=== PATIENT | male | born 1930 | race Two or more races ===

== ENCOUNTER → 2017-05-29 | Outpatient (REF) | payer MEDICARE, OTHER ==
[2017-05-29 19:36] LABS: MEAN CORPUSCULAR HEMOGLOBIN 33.1 pg (27.0-33.0); MEAN CORPUSCULAR HGB CONC 34.1 g/dl (32.0-36.5); MEAN CORPUSCULAR VOLUME 97.1 fl (80.0-96.0); RED CELL DISTRIBUTION WIDTH 12.3 % (11.5-14.5); WHITE BLOOD COUNT 7.3 K/mm3 (4.0-10.0)
[2017-05-29 20:14] LABS: ALBUMIN 3.8 GM/DL (3.2-5.2); ALBUMIN/GLOBULIN RATIO 1.03 (1.00-1.93); BILIRUBIN,TOTAL 0.4 MG/DL (0.2-1.0); CALCIUM LEVEL 9.2 MG/DL (8.8-10.2); CREATININE FOR GFR 1.37 MG/DL (0.70-1.30); FREE T4 1.1 NG/DL (0.76-1.46); GLOMERULAR FILTRATION RATE 52.6 (>35); POTASSIUM SERUM 4.1 MEQ/L (3.5-5.1); TOTAL PROTEIN 7.5 GM/DL (6.4-8.2)
== END ==
LOC: M SFHCADAM 14:24
PROVIDERS: ATTEND Family Medicine
DX: G20 Parkinson's disease (principal); E78.5 Hyperlipidemia, unspecified
CPT/HCPCS: 80053; 80061; 84439; 84443; 85027; G0463

== ENCOUNTER → 2017-06-12 | Outpatient (REF) | payer MEDICARE, OTHER ==
[2017-06-12 11:59] LABS: FOLATE > 24.0 NG/ML (>5.4)
[2017-06-12 12:12] LABS: VITAMIN B12 LEVEL 589 PG/ML (247-911)
[2017-06-15 08:06] LABS: VITAMIN E LEVEL 15.9 mg/L (5.3-17.5)
== END ==
LOC: M LABNEURO 09:27
PROVIDERS: ATTEND Psychiatry & Neurology Neurology
DX: G62.9 Polyneuropathy, unspecified (principal); E51.9 Thiamine deficiency, unspecified; E53.8 Deficiency of other specified B group vitamins; E61.0 Copper deficiency; T56.0X4A Toxic effect of lead and its compounds, undetermined, initial encounter

== ENCOUNTER → 2017-06-19 | Outpatient (CLI) | payer MEDICARE, OTHER ==
--- NOTE | 2017-06-19 19:25 | REP ---
CT BRAIN WITHOUT CONTRAST: 06/19/2017. Clinical history: Parkinsonism. Technique: Noncontrast imaging of the brain performed. There are no prior studies. Findings: Dilated lateral ventricles in a symmetric fashion and proportionate to the moderately severe diffuse atrophy. Third and fourth ventricles also dilated in proportion. The gunderson-white junction differentiation maintained. There is a 10 mm lacunar infarct in the putamen of the right basal ganglia. This is old. Subtle hypodensity in the right thalamus anteriorly that may be subacute lacunar infarct. I do not see other lacunar infarcts in the basal ganglia. 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 Although the cortical stripe shows atrophy. There is no vascular territory infarct, intracranial hemorrhage, mass or mass effect. No extra-axial fluid collections. Brainstem grossly unremarkable. Moderately severe cerebellar atrophy bilaterally. Basal cisterns intact. Mastoids visible are visualized sinuses clear. Heavy vascular calcifications in the carotid siphons, right more than left. Impression: 1. Diffuse moderately severe atrophy with proportionate ventriculomegaly. 2. 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 3. Extensive chronic small vessel white matter changes and diffuse atrophy of the cortex but no vascular territory infarct, hemorrhage, mass or mass effect. Signed by Golden Franks MD 06/20/2017 08:48 A
== END ==
LOC: M RAD 16:58
PROVIDERS: ATTEND Psychiatry & Neurology Neurology
DX: G20 Parkinson's disease (principal); R26.81 Unsteadiness on feet
CPT/HCPCS: 70450; G0463

== ENCOUNTER → 2017-07-18 | Outpatient (REF) | payer MEDICARE, OTHER | LOC: M SMT 17:03 | PROVIDERS: ATTEND Nurse Practitioner Women's Health | DX: N40.1 Benign prostatic hyperplasia with lower urinary tract symptoms (principal) | CPT/HCPCS: 81001; 87088; 87186; G0463 ==

== ENCOUNTER → 2017-12-24 | Outpatient (REF) | payer MEDICARE, OTHER ==
[2017-12-24 20:33] LABS: ANION GAP 4 MEQ/L (8-16); BLOOD UREA NITROGEN 33 MG/DL (7-18); CARBON DIOXIDE LEVEL 29 MEQ/L (21-32); CHLORIDE LEVEL 103 MEQ/L (98-107); GLOMERULAR FILTRATION RATE 40.9 (>35); GLUCOSE, FASTING 82 MG/DL (70-100); NT-PRO BNP 259 PG/ML (<450); SODIUM LEVEL 136 MEQ/L (136-145)
[2017-12-24 20:35] LABS: POTASSIUM SERUM 5.5 MEQ/L (3.5-5.1)
== END ==
LOC: M SFHCADAM 14:51
DX: R60.0 Localized edema (principal); I11.9 Hypertensive heart disease without heart failure
CPT/HCPCS: 80048

== ENCOUNTER → 2018-03-03 | Outpatient (REF) | payer MEDICARE, OTHER | LOC: M LAB REF 11:51 | DX: C44.319 Basal cell carcinoma of skin of other parts of face (principal) | CPT/HCPCS: 88305 ==

== ENCOUNTER → 2018-03-25 | Outpatient (CLI) | payer MEDICARE, OTHER ==
[2018-03-25 13:06] LABS: ANION GAP 5 MEQ/L (8-16); BLOOD UREA NITROGEN 24 MG/DL (7-18); CALCIUM LEVEL 8.9 MG/DL (8.8-10.2); CARBON DIOXIDE LEVEL 30 MEQ/L (21-32); CHLORIDE LEVEL 104 MEQ/L (98-107); CREATININE FOR GFR 1.44 MG/DL (0.70-1.30); GLOMERULAR FILTRATION RATE 49.5 (>35); GLUCOSE, FASTING 93 MG/DL (70-100); POTASSIUM SERUM 4.8 MEQ/L (3.5-5.1); SODIUM LEVEL 139 MEQ/L (136-145)
== END ==
LOC: M LAB 11:41
DX: I10 Essential (primary) hypertension (principal)
CPT/HCPCS: 80048

== ENCOUNTER → 2018-07-10 | Outpatient (REF) | payer MEDICARE, OTHER ==
[2018-07-10 19:26] LABS: ALBUMIN/GLOBULIN RATIO 1.21 (1.00-1.93); ALKALINE PHOSPHATASE 90 U/L (45-117); ALT/SGPT 15 U/L (12-78); ANION GAP 8 MEQ/L (8-16); AST/SGOT 17 U/L (7-37); BILIRUBIN,TOTAL 0.4 MG/DL (0.2-1.0); BLOOD UREA NITROGEN 18 MG/DL (7-18); CARBON DIOXIDE LEVEL 28 MEQ/L (21-32); CHLORIDE LEVEL 104 MEQ/L (98-107); CHOLESTEROL LEVEL 173 MG/DL (<200); CHOLESTEROL RISK RATIO 3.844 (<5); CREATININE FOR GFR 1.41 MG/DL (0.70-1.30); GLOMERULAR FILTRATION RATE 50.7 (>35); GLUCOSE, FASTING 84 MG/DL (70-100); HDL CHOLESTEROL 45 MG/DL (>40); LDL CHOLESTEROL 74.2 MG/DL (<100); NON-HDL-C 128 MG/DL; POTASSIUM SERUM 4.7 MEQ/L (3.5-5.1); SODIUM LEVEL 140 MEQ/L (136-145); TOTAL PROTEIN 7.3 GM/DL (6.4-8.2); TRIGLYCERIDES LEVEL 269 MG/DL (<150)
[2018-07-10 20:20] LABS: HEMOGLOBIN 13.4 g/dl (13.5-17.5); MEAN CORPUSCULAR HEMOGLOBIN 33.2 pg (27.0-33.0); MEAN CORPUSCULAR HGB CONC 33.5 g/dl (32.0-36.5); PLATELET COUNT, AUTOMATED 224 10^3/uL (150-450); RED BLOOD COUNT 4.04 10^6/uL (4.30-6.10); WHITE BLOOD COUNT 6.4 10^3/uL (4.0-10.0)
== END ==
LOC: M SFHCADAM 14:45
DX: I13.0 Hypertensive heart and chronic kidney disease with heart failure and stage 1 through stage 4 chronic kidney disease, or unspecified chronic kidney disease (principal); N18.3 Chronic kidney disease, stage 3 (moderate); G20 Parkinson's disease
CPT/HCPCS: 84443

== ENCOUNTER → 2018-09-03 | Outpatient (REF) | payer MEDICARE, OTHER | LOC: M SFHCLERA 10:07 | DX: L57.0 Actinic keratosis (principal) | CPT/HCPCS: 88305 ==

== ENCOUNTER → 2019-01-07 | Outpatient (REF) | payer MEDICARE, OTHER ==
[2019-01-07 20:25] LABS: HEMATOCRIT 40.4 % (42.0-52.0); HEMOGLOBIN 13.4 g/dl (13.5-17.5); MEAN CORPUSCULAR HEMOGLOBIN 32.2 pg (27.0-33.0); MEAN CORPUSCULAR HGB CONC 33.2 g/dl (32.0-36.5); MEAN CORPUSCULAR VOLUME 97.1 fl (80.0-96.0); PLATELET COUNT, AUTOMATED 228 10^3/uL (150-450); RED BLOOD COUNT 4.16 10^6/uL (4.30-6.10); WHITE BLOOD COUNT 6.7 10^3/uL (4.0-10.0)
[2019-01-07 20:46] LABS: CALCIUM LEVEL 8.8 MG/DL (8.8-10.2); CREATININE FOR GFR 1.48 MG/DL (0.70-1.30); GLOMERULAR FILTRATION RATE 47.9 (>35); POTASSIUM SERUM 4.3 MEQ/L (3.5-5.1)
== END ==
LOC: M SFHCADAM 16:12
PROVIDERS: ATTEND Family Medicine
DX: I13.10 Hypertensive heart and chronic kidney disease without heart failure, with stage 1 through stage 4 chronic kidney disease, or unspecified chronic kidney disease (principal); N18.3 Chronic kidney disease, stage 3 (moderate)
CPT/HCPCS: 80048; 85027; G0463

== ENCOUNTER → 2019-07-23 | Outpatient (REF) | payer MEDICARE, OTHER ==
[2019-07-23 20:12] LABS: HEMATOCRIT 37.7 % (42.0-52.0); HEMOGLOBIN 12.4 g/dl (13.5-17.5); MEAN CORPUSCULAR HEMOGLOBIN 33.3 pg (27.0-33.0); MEAN CORPUSCULAR HGB CONC 32.9 g/dl (32.0-36.5); MEAN CORPUSCULAR VOLUME 101.3 fl (80.0-96.0); PLATELET COUNT, AUTOMATED 205 10^3/uL (150-450); RED BLOOD COUNT 3.72 10^6/uL (4.30-6.10); WHITE BLOOD COUNT 6.1 10^3/uL (4.0-10.0)
[2019-07-23 20:15] LABS: BILIRUBIN,TOTAL 0.4 MG/DL (0.2-1.0); CALCIUM LEVEL 8.6 MG/DL (8.8-10.2); CREATININE FOR GFR 1.39 MG/DL (0.70-1.30); GLOMERULAR FILTRATION RATE 51.5 (>35); POTASSIUM SERUM 4.5 MEQ/L (3.5-5.1)
[2019-07-23 20:16] LABS: ALBUMIN 3.9 GM/DL (3.2-5.2); CHOLESTEROL RISK RATIO 3.974 (<5); TOTAL PROTEIN 6.7 GM/DL (6.4-8.2)
== END ==
LOC: M SFHCADAM 15:56
PROVIDERS: ATTEND Family Medicine
DX: N18.3 Chronic kidney disease, stage 3 (moderate) (principal); I11.9 Hypertensive heart disease without heart failure; E78.5 Hyperlipidemia, unspecified
CPT/HCPCS: 80053; 80061; 85027; G0463

== ENCOUNTER → 2019-12-03 | Outpatient (REF) | payer MEDICARE, OTHER | LOC: M SFHCADAM 18:43 | PROVIDERS: ATTEND Family Medicine | DX: R19.7 Diarrhea, unspecified (principal) | CPT/HCPCS: 87507; G0463 ==

== ENCOUNTER → 2019-12-29 | Outpatient (REF) | payer MEDICARE, OTHER ==
[2019-12-29 12:53] LABS: HEMATOCRIT 41.5 % (42.0-52.0); HEMOGLOBIN 13.4 g/dl (13.5-17.5); MEAN CORPUSCULAR HEMOGLOBIN 32.1 pg (27.0-33.0); MEAN CORPUSCULAR HGB CONC 32.3 g/dl (32.0-36.5); MEAN CORPUSCULAR VOLUME 99.5 fl (80.0-96.0); PLATELET COUNT, AUTOMATED 194 10^3/uL (150-450); RED BLOOD COUNT 4.17 10^6/uL (4.30-6.10); WHITE BLOOD COUNT 5.7 10^3/uL (4.0-10.0)
[2019-12-29 13:05] LABS: CALCIUM LEVEL 9.2 MG/DL (8.8-10.2); CREATININE FOR GFR 1.37 MG/DL (0.70-1.30); GLOMERULAR FILTRATION RATE 52.2 (>35); POTASSIUM SERUM 4.2 MEQ/L (3.5-5.1)
== END ==
LOC: M SFHCADAM 09:16
PROVIDERS: ATTEND Family Medicine
DX: A04.5 Campylobacter enteritis (principal)
CPT/HCPCS: 80048; 85027; G0463

== ENCOUNTER → 2020-02-18 | Outpatient (REF) | payer MEDICARE, OTHER | LOC: M SFHCPLAZ 10:49 | PROVIDERS: ATTEND Family Medicine | DX: K52.9 Noninfective gastroenteritis and colitis, unspecified (principal) ==

== ENCOUNTER → 2020-04-05 | Outpatient (REF) | payer MEDICARE, OTHER | LOC: M LAB REF 08:47 | PROVIDERS: ATTEND Dermatology | DX: D23.5 Other benign neoplasm of skin of trunk (principal) | CPT/HCPCS: 11402; 12032; 88305; G0463 ==

== ENCOUNTER → 2020-04-26 | Outpatient (REF) | payer MEDICARE, OTHER ==
[2020-04-26 17:19] LABS: HEMATOCRIT 40.7 % (42.0-52.0); HEMOGLOBIN 13.4 g/dl (13.5-17.5); MEAN CORPUSCULAR HEMOGLOBIN 32.5 pg (27.0-33.0); MEAN CORPUSCULAR HGB CONC 32.9 g/dl (32.0-36.5); MEAN CORPUSCULAR VOLUME 98.8 fl (80.0-96.0); PLATELET COUNT, AUTOMATED 208 10^3/uL (150-450); RED BLOOD COUNT 4.12 10^6/uL (4.30-6.10); WHITE BLOOD COUNT 5.7 10^3/uL (4.0-10.0)
[2020-04-26 17:39] LABS: ALBUMIN 3.9 GM/DL (3.2-5.2); ALT/SGPT 12 U/L (12-78); BILIRUBIN,TOTAL 0.5 MG/DL (0.2-1.0); BLOOD UREA NITROGEN 26 MG/DL (7-18); CALCIUM LEVEL 9.2 MG/DL (8.8-10.2); CARBON DIOXIDE LEVEL 31 MEQ/L (21-32); CHLORIDE LEVEL 103 MEQ/L (98-107); CHOLESTEROL LEVEL 169 MG/DL (<200); CHOLESTEROL RISK RATIO 4.694 (<5); CREATININE FOR GFR 1.72 MG/DL (0.70-1.30); FREE T4 0.98 NG/DL (0.76-1.46); GLOMERULAR FILTRATION RATE 40.1 (>35); GLUCOSE, FASTING 122 MG/DL (70-100); HDL CHOLESTEROL 36 MG/DL (>40); LDL CHOLESTEROL 80 MG/DL (<100); NON-HDL-C 133 MG/DL; POTASSIUM SERUM 4.6 MEQ/L (3.5-5.1); SODIUM LEVEL 139 MEQ/L (136-145); TRIGLYCERIDES LEVEL 263 MG/DL (<150)
[2020-04-27 09:06] LABS: VITAMIN B12 LEVEL 581 PG/ML (247-911)
[2020-04-27 09:08] LABS: FOLATE > 24.0 NG/ML (>5.4)
== END ==
LOC: M SFHCADAM 15:45
PROVIDERS: ATTEND Family Medicine
DX: I11.9 Hypertensive heart disease without heart failure (principal); N18.3 Chronic kidney disease, stage 3 (moderate); R53.83 Other fatigue; I48.0 Paroxysmal atrial fibrillation; E78.5 Hyperlipidemia, unspecified

== ENCOUNTER → 2020-07-29 | Outpatient (CLI) | payer MEDICARE, OTHER | LOC: M LAB 09:55 | PROVIDERS: ATTEND Urology | DX: C61 Malignant neoplasm of prostate (principal) ==

== ENCOUNTER → 2020-08-02 | Outpatient (CLI) | payer MEDICARE, OTHER ==
--- NOTE | 2020-08-10 14:20 | REPPI ---
TRANSRECTAL PROSTATE ULTRASOUND WITH ULTRASOUND GUIDANCE FOR PROSTATE BIOPSY HISTORY: Elevated prostate-specific antigen (PSA). Transrectal prostate ultrasound is performed. Prostate measures 3.5 x 3.0 x 5.1 cm. Prostate volume is calculated to be 27.7 mL. Echotexture is heterogeneous. A few tiny cysts and calcifications are seen in the prostate. A nodule in the right apex measures 9 x 5 mm, hypoechoic. Seminal vesicles appear somewhat asymmetric in size, right somewhat larger than the left. Ultrasound guidance was provided for Dr. Moreno who performed ultrasound- guided biopsy of the prostate. [facility]
== END ==
LOC: M SMT PRO 09:55
PROVIDERS: ATTEND Urology
DX: C61 Malignant neoplasm of prostate (principal); R97.20 Elevated prostate specific antigen [PSA]; N40.2 Nodular prostate without lower urinary tract symptoms
CPT/HCPCS: 55700; 76872; 76942; G0416

== ENCOUNTER → 2020-08-09 | Outpatient (CLI) | payer MEDICARE, OTHER ==
[2020-08-09 16:23] LABS: CALCIUM LEVEL 8.7 MG/DL (8.8-10.2); CREATININE FOR GFR 1.54 MG/DL (0.70-1.30); GLOMERULAR FILTRATION RATE 45.6 (>35); POTASSIUM SERUM 4.1 MEQ/L (3.5-5.1)
== END ==
LOC: M PLALAB 14:26
PROVIDERS: ATTEND Urology
DX: C61 Malignant neoplasm of prostate (principal)
CPT/HCPCS: 36415; 80048; G0463

== ENCOUNTER → 2020-08-12 | Outpatient (CLI) | payer MEDICARE, OTHER ==
[~2020-08-12] MED LIST: ISOVUE-370 76% 100ML VIAL As Ordered ONE
--- NOTE | 2020-08-17 15:45 | REP ---
CT ABDOMEN AND PELVIS WITH INTRAVENOUS (IV) CONTRAST HISTORY: Prostate carcinoma. COMPARISON CHEST CT STUDY: None. CT CONTRAST DOSE: 100 mL of intravenous Isovue-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 Bowel gas pattern is normal. There is a levoconvex curvature in the lumbar spine mild in degree. On axial CT images, the lung bases are clear. There is no evidence of pleural effusion or upper abdominal ascites. The liver is normal in size and homogeneous in texture. The spleen is unremarkable. Normal adrenal glands are observed bilaterally. No abnormality is noted in the pancreas or in the gallbladder. The kidneys enhance symmetrically. There is no evidence of hydronephrosis or renal mass on either side. Vascular calcification is observed. There is an infrarenal abdominal aortic aneurysm small in size measuring 2.9 cm anteroposterior x 3.6 cm medial to lateral. Common iliac arteries are not aneurysmal. There is extensive diverticulosis affecting the left colon without CT evidence of diverticulitis. This is most pronounced in the sigmoid segment. Prostate is somewhat enlarged. Seminal vesicles are symmetric. Urinary bladder is unremarkable. No abdominal wall defect is appreciated. No pelvic or retroperitoneal mass or adenopathy is observed. Bone window settings show no bony destructive lesion. Delayed postcontrast images show no evidence of filling defect in the collecting system on either side. There are small parapelvic cysts. IMPRESSION: Small infrarenal abdominal aortic aneurysm, 2.9 cm anterior to posterior x 3.6 cm right to left. Extensive left colonic diverticulosis. No evidence of mass or adenopathy. MTDD
== END ==
LOC: M RAD 16:08
PROVIDERS: ATTEND Urology
DX: C61 Malignant neoplasm of prostate (principal); I71.4 Abdominal aortic aneurysm, without rupture; K57.30 Diverticulosis of large intestine without perforation or abscess without bleeding
CPT/HCPCS: 74177; 96402; J9155; Q9967

== ENCOUNTER → 2020-08-24 | Outpatient (CLI) | payer MEDICARE, OTHER ==
--- NOTE | 2020-08-25 13:12 | REP ---
INDICATION: PROSTATE CA. COMPARISON: None. TECHNIQUE/RADIOTRACER AND DOSE: Following the intravenous administration of 22.0 mCi technetium 99 M MDP, multiple images of the entire body are performed in various projections. FINDINGS: Mild focal increased uptake is seen in the anterior end of the right 4th through 7th ribs. The distribution suggests prior fractures at these locations. There is mild arthritic uptake in both shoulders, as well as in the right patellofemoral region and left hindfoot. There is no compelling scintigraphic evidence of osseous metastases. Renal and bladder activity are seen. IMPRESSION: Mildfocal increased uptake in the anterior ends of the right 4th through 7th ribs suggests prior fractures at these locations. No compelling scintigraphic evidence of osseous metastases. <Electronically signed by Jossue Hardy > 08/25/20 [id number]
== END ==
LOC: M RAD 09:51
PROVIDERS: ATTEND Urology
DX: C61 Malignant neoplasm of prostate (principal)
CPT/HCPCS: 78306; A9503

== ENCOUNTER → 2020-09-15 | Outpatient (REF) | payer MEDICARE, OTHER | LOC: M LABSMT 15:00 | PROVIDERS: ATTEND Urology | DX: C61 Malignant neoplasm of prostate (principal) | CPT/HCPCS: 84153; 96402; G0463; J9217 ==

== ENCOUNTER → 2020-10-13 | Outpatient (CLI) | payer SELFPAY | LOC: M LABSMTC 14:00 | PROVIDERS: ATTEND Pediatrics | DX: Z20.828 Contact with and (suspected) exposure to other viral communicable diseases (principal) ==

== ENCOUNTER → 2020-10-19 | Outpatient (CLI) | payer MEDICARE, OTHER ==
--- NOTE | 2020-10-19 16:40 | REP ---
INDICATION: OCCLUSION AND STENOSIS BRITTANIE CAROTID ART. COMPARISON: None. TECHNIQUE: Bilateral carotid artery duplex ultrasound. FINDINGS: Peak flow velocities right left Internal carotid artery 67.4 cm/sec 101.5 cm/sec Int. Carotid, Diastolic 16.3 cm/sec 28.2 cm/sec External carotid artery 93.6 cm/sec 75.5 cm/sec Common carotid artery 84.4 cm/sec 83.4 cm/sec There is moderate atheromatous plaque in the common carotid arteries extending into the internal carotid and external carotid arteries bilaterally. The at with atheromatous plaque is focally heavier in the proximal left internal carotid artery. There is antegrade flow in the vertebral arteries bilaterally. IMPRESSION: The peak flow velocities are normal bilaterally. There is less than 50% narrowing bilaterally. There is no significant stenosis on the right or the left. <Electronically signed by Jossue Fernandez > 10/19/20 [id number]
--- NOTE | 2020-10-19 16:52 | REP ---
INDICATION: AAA WITHOUT RUPTURE. Rule out thoracic aortic aneurysm. COMPARISON: None. TECHNIQUE: Helical scanning is acquired. 3 mm axial images are generated. Coronal and sagittal MPR and coronal MIP images are generated. FINDINGS: Preliminary digital pipe covering molder radiograph demonstrates bipolar pacemaker. The thoracic aorta is tortuous. 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 The innominate artery is tortuous. Vascular calcification is noted. There is an eccentric bulge of the left lateral contour of the thoracic aorta at mid arch level. This appears to be a small focal aneurysmal bulge of the left lateral wall. The transverse dimension of the arch at this level is 3.5 cm. The ascending aorta measures 4.0 cm in anteroposterior dimension at the level of the right main pulmonary artery. The aortic root measures 3.9 cm in greatest diameter. The descending aorta measures 3.0 cm. The thoracic aorta is somewhat tortuous. No other aneurysm is seen. Lung window settings show no evidence of infiltrate, mass, or significant nodule. No pleural or pericardial effusion is seen. No bony destructive lesion is appreciated. IMPRESSION: There is a small focal bulge in the left lateral wall of the mid aortic arch consistent with a small focal aneurysm. Aorta measures 3.5 cm in right to left dimension at this level. The ascending aorta measures 4.0 cm. Atherosclerotic plaquing. Pacemaker. <Electronically signed by Osmar Guevara > 10/19/20 [id number]
== END ==
LOC: M RAD 15:27
PROVIDERS: ATTEND Physician Assistant
DX: I71.4 Abdominal aortic aneurysm, without rupture (principal); R09.89 Other specified symptoms and signs involving the circulatory and respiratory systems; Z95.0 Presence of cardiac pacemaker

== ENCOUNTER → 2021-03-20 | Outpatient (REF) | payer MEDICARE, OTHER | LOC: M PLALAB 16:48 | PROVIDERS: ATTEND Urology | DX: C61 Malignant neoplasm of prostate (principal) ==

== ENCOUNTER → 2021-04-13 | Outpatient (REF) | payer MEDICARE, OTHER ==
[2021-04-13 18:37] LABS: HEMATOCRIT 37.5 % (42.0-52.0); HEMOGLOBIN 12.2 g/dl (13.5-17.5); MEAN CORPUSCULAR HEMOGLOBIN 32.8 pg (27.0-33.0); MEAN CORPUSCULAR HGB CONC 32.5 g/dl (32.0-36.5); MEAN CORPUSCULAR VOLUME 100.8 fl (80.0-96.0); PLATELET COUNT, AUTOMATED 212 10^3/uL (150-450); RED BLOOD COUNT 3.72 10^6/uL (4.30-6.10); WHITE BLOOD COUNT 6.1 10^3/uL (4.0-10.0)
[2021-04-13 18:41] LABS: BILIRUBIN,TOTAL 0.4 MG/DL (0.2-1.0); CALCIUM LEVEL 9.1 MG/DL (8.8-10.2); CHOLESTEROL RISK RATIO 3.608 (<5); CREATININE FOR GFR 1.46 MG/DL (0.70-1.30); GLOMERULAR FILTRATION RATE 48.4 (>35); POTASSIUM SERUM 4.8 MEQ/L (3.5-5.1); TOTAL PROTEIN 7.2 GM/DL (6.4-8.2)
== END ==
LOC: M SFHCADAM 14:55
PROVIDERS: ATTEND Family Medicine
DX: N18.30 Chronic kidney disease, stage 3 unspecified (principal); E78.5 Hyperlipidemia, unspecified
CPT/HCPCS: 80053; 80061; 85027; G0463

== ENCOUNTER → 2021-06-20 | Outpatient (CLI) | payer MEDICARE, OTHER | LOC: M LAB 15:16 | PROVIDERS: ATTEND Urology | DX: C61 Malignant neoplasm of prostate (principal) ==

== ENCOUNTER 2021-07-27 12:16 | Emergency (ER) | payer MEDICARE, OTHER ==
[~2021-07-27] VITALS: Ht 172.7 cm; Wt 77.3 kg
[2021-07-27] MEDS ORDERED: CLOP75TA2 (12:41)
[2021-07-27] MEDS ORDERED: ELIQ2.5T (12:41)
--- NOTE | 2021-07-27 13:03 | REP ---
INDICATION: ecchymotic, swollen. COMPARISON: None. TECHNIQUE: Four views of the right elbow are provided. FINDINGS: Four views of the right elbow demonstrate soft tissue swelling over the dorsal aspect of the proximal ulna and adjacent to the olecranon. No fracture or subluxation is seen. No evidence of joint effusion. IMPRESSION: Soft tissue swelling adjacent to the proximal ulna. No fracture or subluxation seen. <Electronically signed by Osmar Guevara > 07/27/21 [id number]
[2021-07-27] MEDS ORDERED: METO1TAB32 PO (14:40)
[2021-07-27] MEDS ORDERED: OXYB10TA23 PO (14:40)
[2021-07-27] MEDS ORDERED: LISI10TA22 PO (14:40)
[2021-07-27] MEDS ORDERED: OMEP-218 PO (14:40)
[2021-07-27] MEDS ORDERED: TAMS1CAP17 PO (14:40)
[2021-07-27] MEDS ORDERED: FURO20TA2 PO (14:40)
[2021-07-27] MEDS ORDERED: CARB25TA9 PO (14:40)
[2021-07-27] MEDS ORDERED: FLUTISP INSTILL (14:40)
[2021-07-27] MEDS ORDERED: SIMV20TA22 PO (14:40)
[2021-07-27] MEDS ORDERED: FINA5TAB2 PO (14:40)
[2021-07-27] MEDS ORDERED: SERT50TA29 PO (14:40)
[2021-07-27] MEDS ORDERED: GABA-1171 PO (14:40)
--- NOTE | 2021-07-27 17:58 | REPVR ---
PROCEDURE INFORMATION: Exam: CT Head Without Contrast Exam date and time: 07/27/2021 5:34 PM Age: 89 years old Clinical indication: Injury or trauma; Fall; Blunt trauma (contusions or hematomas); Additional info: Fall, hit head, on blood thinners TECHNIQUE: Imaging protocol: Computed tomography of the head without contrast. Radiation optimization: All CT scans at this facility use at least one of these dose optimization techniques: automated exposure control; mA and/or kV adjustment per patient size (includes targeted exams where dose is matched to clinical indication); or iterative reconstruction. COMPARISON: CT Head without contrast 06/19/2017 5:12 PM FINDINGS: Brain: There is age-related volume loss. There is white matter lucency consistent with chronic microvascular disease. There are bilateral old cerebellar infarcts. There is an old right basal ganglia infarct. There is no evidence of acute infarct. Cerebral ventricles: There is no hydrocephalus. Paranasal sinuses: Visualized sinuses are unremarkable. No fluid levels. Mastoid air cells: Visualized mastoid air cells are well aerated. Bones/joints: Unremarkable. No acute fracture. Soft tissues: Unremarkable. IMPRESSION: 1. Multiple old infarcts. 2. No acute intracranial injury or lesion and no significant change from prior scan. Electronically signed by: Eligio Naqvi On 07/27/2021 17:58:23 PM
--- NOTE | 2021-07-27 18:17 | REPVR ---
PROCEDURE INFORMATION: Exam: CT Cervical Spine Without Contrast Exam date and time: 07/27/2021 5:34 PM Age: 89 years old Clinical indication: Injury or trauma; Fall; Blunt trauma; Additional info: Fall, hit head, on blood thinners TECHNIQUE: Imaging protocol: Computed tomography images of the cervical spine without contrast. Radiation optimization: All CT scans at this facility use at least one of these dose optimization techniques: automated exposure control; mA and/or kV adjustment per patient size (includes targeted exams where dose is matched to clinical indication); or iterative reconstruction. COMPARISON: NM Bone Scan Whole Body 08/24/2020 10:29 AM FINDINGS: Bones/joints: There is no fracture. There is minimal C3-C4 anterolisthesis. Alignment is otherwise normal. There is no fracture of the posterior elements. Cervical vertebral bodies maintain their height. Discs/Spinal canal/Neural foramina: C5-C6 and C6-C7 spondylosis and disc space narrowing with small posterior osteophytes and disc bulges. There is no central spinal stenosis in the spine. There is foraminal stenosis on the left at C5-C6 Lungs: Lung apices are normal. Soft tissues: Unremarkable. IMPRESSION: No fracture of the cervical spine Electronically signed by: Eligio Naqvi On 07/27/2021 18:16:41 PM
[2021-07-27 18:48] VITALS: BP 132/66
[2021-07-27] MEDS ORDERED: Physical therapy (19:18)
== END 2021-07-27 19:40 | disposition home or self-care (01) ==
LOC: M ED 12:16
DX: S50.01XA Contusion of right elbow, initial encounter (principal); W22.8XXA Striking against or struck by other objects, initial encounter; Y92.099 Unspecified place in other non-institutional residence as the place of occurrence of the external cause; Y93.9 Activity, unspecified; Y99.9 Unspecified external cause status; I48.91 Unspecified atrial fibrillation; Z85.46 Personal history of malignant neoplasm of prostate; I10 Essential (primary) hypertension; E78.5 Hyperlipidemia, unspecified; Z86.73 Personal history of transient ischemic attack (TIA), and cerebral infarction without residual deficits; G20 Parkinson's disease; Z95.0 Presence of cardiac pacemaker; Z79.01 Long term (current) use of anticoagulants; Z79.899 Other long term (current) drug therapy